=== PATIENT | male | born 1995 | race American Indian/Alaskan Native ===

== ENCOUNTER 2021-05-24 08:37 | Emergency (ER) | payer OTHER ==
[2021-05-24 08:49] VITALS: BP 129/75
--- NOTE | 2021-05-24 10:49 | Emergency Department Report ---
ED Eye Problem HPI - General Chief complaint: Eye Problems Stated complaint: BOTH WATERING,HURT Time Seen by Provider: 05/24/21 10:42 Source: patient Mode of arrival: Ambulatory Limitations: No Limitations - History of Present Illness Initial comments: Patient is a 25-year-old male presents emergency room complaints of bilateral eye irritation that began 2 days ago. He has associated frequent watering and mucus drainage. He denies anything getting into the eyes. He denies any contact lens use. he denies any vision changes changes. he denies anyone else with similar symptoms. Patient denies any past medical history. Patient denies any allergies to medicines - Related Data Previous Rx's Medication Instructions Recorded Last Taken Type Polymyxin B Sulf/Trimethoprim 1 drop OP Q3HR 7 Days #1 bottle 05/24/21 Unknown Rx [Polytrim Eye Drops 65714gbcif/0.1%] Allergies Allergy/AdvReac Type Severity Reaction Status Date / Time No Known Allergies Allergy Unverified 05/24/21 08:46 ED Review of Systems ROS: Stated complaint: BOTH WATERING,HURT Other details as noted in HPI Comment: All other systems reviewed and negative ED Past Medical Hx - Past Medical History Previous Medical History?: No - Surgical History Past Surgical History?: No - Social History Smoking Status: Never Smoker Substance Use Type: None - Medications Home Medications: Home Medications Medication Instructions Recorded Confirmed Last Taken Type Polymyxin B Sulf/Trimethoprim 1 drop OP Q3HR 7 Days #1 bottle 05/24/21 Unknown Rx [Polytrim Eye Drops 73217jlxup/0.1%] ED Physical Exam - General Limitations: No Limitations General appearance: alert, in no apparent distress - Head Head exam: Present: atraumatic, normocephalic - Eye Eye exam: Present: PERRL, EOMI, conjunctival injection (bilaterally). Absent: periorbital swelling, periorbital tenderness Pupils: Present: normal accommodation - ENT ENT exam: Present: mucous membranes moist - Respiratory Respiratory exam: Absent: respiratory distress, accessory muscle use - Neurological Exam Neurological exam: Present: alert, oriented X3 - Psychiatric Psychiatric exam: Present: normal affect, normal mood - Skin Skin exam: Present: warm, dry, intact ED Course Vital Signs 05/24/21 08:48 Temperature 98.4 F Pulse Rate 64 Respiratory 16 Rate Blood Pressure 129/75 O2 Sat by Pulse 100 Oximetry ED Medical Decision Making - Medical Decision Making Patient is a 25-year-old male presents emergency room complaints of bilateral eye irritation that began 2 days ago. He has associated frequent watering and mucus drainage. He denies anything getting into the eyes. He denies any contact lens use. he denies any vision changes changes. he denies anyone else with similar symptoms. Patient denies any past medical history. Patient denies any allergies to medicines. Vitals are normal. On exam: Bilateral conjunctival injection, no periorbital edema, erythema, tenderness palpation, EOMI, PERRLA. Patient given prescription for medication. Advised patient Please use medication as prescribed. Please wash your hands frequently. Avoid rubbing the eyes. Follow-up with city recorder if symptoms are not improving. Return to emergency room for any new or worsening symptoms. Critical care attestation.: If time is entered above; I have spent that time in minutes in the direct care of this critically ill patient, excluding procedure time. ED Disposition Clinical Impression: Conjunctivitis Qualifiers: Conjunctivitis type: acute Acute conjunctivitis type: unspecified Laterality: bilateral Qualified Code(s): H10.33 - Unspecified acute conjunctivitis, bilateral Disposition: DC- TO HOME OR SELFCARE Is pt being admited?: No Does the pt Need Aspirin: No Condition: Stable Instructions: Viral Conjunctivitis, Adult, Bacterial Conjunctivitis, Adult Additional Instructions: Please use medication as prescribed. Please wash your hands frequently. Avoid rubbing the eyes. Follow-up with city recorder if symptoms are not improving. Return to emergency room for any new or worsening symptoms. Prescriptions: Polymyxin B Sulf/Trimethoprim [Polytrim Eye Drops 20032pqngj/0.1%] 1 drop OP Q3HR 7 Days #1 bottle Referrals: LIAM KOWALSKI MD [Staff Physician] - 3-[address] [facility] [Provider Group] - 3-5 Days Time of Disposition: 10:47 Print Language: LITHUANIAN
== END 2021-05-24 11:28 | disposition home or self-care (01) ==
LOC: ED 08:37
DX: H10.9 Unspecified conjunctivitis (principal)
CPT/HCPCS: 99282

== ENCOUNTER 2021-10-02 23:16 | Emergency (ER) | payer OTHER ==
[2021-10-02] MEDS ORDERED: fentaNYL 100 MCG/2 ML INJ IV ONE (23:37)
[2021-10-02] MEDS ORDERED: SODIUM CHLORIDE 0.9% 1000 ML 1,000 ML IV ONE (23:37)
[2021-10-02] MEDS ORDERED: ONDANSETRON 4 MG/2 ML INJ IV ONE (23:37)
[2021-10-02] MEDS ORDERED: KETOROLAC 30 MG/1 ML INJ IV ONE (23:38)
--- NOTE | 2021-10-02 23:46 | Emergency Department Report ---
HPI - General Chief Complaint: Abdominal Pain Time Seen by Provider: 10/02/21 23:33 - HPI HPI: Room 17 Patient is a 26-year-old male presenting with a chief complaint of left flank pain. The patient states for the past 2 to 3 days she has had intermittent left flank pain. The patient states BC powder helped his pain but it continues to return. Patient also describes pain when he urinates at times. Patient denies history of fever nausea or vomiting. Patient denies previous episodes of the same. Patient gives his pain a score of 10/10 ED Past Medical Hx - Past Medical History Previous Medical History?: No - Surgical History Past Surgical History?: No - Family History Family history: no significant - Social History Smoking Status: Never Smoker Substance Use Type: None (Denies illicit drug use), Alcohol (Occasional) - Medications Home Medications: Home Medications Medication Instructions Recorded Confirmed Last Taken Type Polymyxin B Sulf/Trimethoprim 1 drop OP Q3HR 7 Days #1 bottle 05/24/21 Unknown Rx [Polytrim Eye Drops 10996cyyzy/0.1%] Ondansetron [Zofran ODT TAB] 8 mg PO Q8HR #20 tab.rapdis 10/03/21 Unknown Rx Tamsulosin [Flomax] 0.4 mg PO QDAY #5 cap 10/03/21 Unknown Rx oxyCODONE /ACETAMINOPHEN [Percocet 1 - 2 tab PO Q6HR PRN #20 tablet 10/03/21 Unknown Rx 5/325] ED Review of Systems ROS: Stated complaint: FLANK PAIN Other details as noted in HPI Constitutional: denies: fever Eyes: denies: eye pain ENT: denies: throat pain Respiratory: no symptoms reported Cardiovascular: denies: chest pain Endocrine: no symptoms reported Gastrointestinal: abdominal pain. denies: nausea, vomiting Genitourinary: dysuria. denies: hematuria Musculoskeletal: back pain Neurological: denies: headache Physical Exam - Physical Exam Vital Signs: Vital Signs 10/02/21 23:30 Temperature 98.5 F Pulse Rate 92 H Respiratory 18 Rate Blood Pressure 148/86 [Left] O2 Sat by Pulse 99 Oximetry Physical Exam: GENERAL: The patient is well-developed well-nourished male lying on stretcher appearing to be in moderate discomfort. [] HEENT: Normocephalic. Atraumatic. Extraocular motions are intact. Patient has moist mucous membranes. NECK: Supple. Trachea midline CHEST/LUNGS: Clear to auscultation. There is no respiratory distress noted. HEART/CARDIOVASCULAR: Regular. There is no tachycardia. There is no gallop rub or murmur. ABDOMEN: Abdomen is soft, with discomfort to palpation in the left lower quadrant left upper quadrant and midepigastric region. There is no rebound or guarding. Patient has normal bowel sounds. There is no abdominal distention. SKIN: There is no rash. There is no edema. There is no diaphoresis. NEURO: The patient is awake, alert, and oriented. The patient is cooperative. The patient has no focal neurologic deficits. The patient has normal speech. GCS 15 MUSCULOSKELETAL: There is left CVA tenderness. There is no evidence of acute injury. ED Course Vital Signs 10/02/21 23:30 Temperature 98.5 F Pulse Rate 92 H Respiratory 18 Rate Blood Pressure 148/86 [Left] O2 Sat by Pulse 99 Oximetry - Reevaluation(s) Reevaluation #1: 10/03/21 02:18 Patient comfortable now and pain controlled. CT findings and labs discussed with him. Strong warnings given to return should he develop a fever. The importance of follow-up with a urologist was stressed. Patient verbalized understanding ED Medical Decision Making - Lab Data Result diagrams: 10/02/21 23:56 10/02/21 23:56 Laboratory Tests 10/02/21 10/02/21 10/03/21 23:56 23:56 01:12 WBC 7.5 RBC 5.06 H Hgb 14.9 Hct 45.7 H MCV 90 MCH 29 MCHC 33 RDW 12.8 L Plt Count 161 Lymph % (Auto) 18.4 [place] % (Auto) 6.7 Eos % (Auto) 3.2 Baso % (Auto) 0.3 Lymph # (Auto) 1.4 [place] # (Auto) 0.5 Eos # (Auto) 0.2 Baso # (Auto) 0.0 Seg Neutrophils % 71.4 H Seg Neutrophils # 5.3 Sodium 142 Potassium 3.7 Chloride 106.1 Carbon Dioxide 24 Anion Gap 16 BUN 15 Creatinine 1.1 Estimated GFR > 60 BUN/Creatinine Ratio 14 Glucose 110 H Calcium 9.6 Total Bilirubin 0.80 AST 21 ALT 30 Alkaline Phosphatase 62 Total Protein 6.2 L Albumin 4.2 Albumin/Globulin Ratio 2.1 Lipase 18 Urine Color Yellow Urine Turbidity Slightly-cloudy Urine pH 7.0 Ur Specific [place] 1.015 Urine Protein <15 mg/dl Urine Glucose (UA) Neg Urine Ketones Neg Urine Blood Mod Urine Nitrite Neg Urine Bilirubin Neg Urine Urobilinogen < 2.0 Ur Leukocyte Esterase Neg Urine WBC (Auto) 3.0 Urine RBC (Auto) 30.0 Urine Mucus Few Urine Yeast (Budding) Few - Radiology Data Radiology results: report reviewed (CT abdomen pelvis), image reviewed (CT abdomen pelvis) [facility] [address] [id number] Cat Scan Report Signed Patient: BRITNI SCHWAB MR#: [id number] : 1995 Acct:[id number] Age/Sex: 26 / M ADM Date: 10/02/21 Loc: ED Attending Dr: Ordering Physician: KITA MCDOWELL MD Date of Service: 10/02/21 Procedure(s): CT abdomen pelvis wo con Accession Number(s): [id number] cc: KITA MCDOWELL MD CT ABDOMEN AND PELVIS WITHOUT CONTRAST INDICATION / CLINICAL INFORMATION: Left flank pain. TECHNIQUE: Axial CT images were obtained through the abdomen and pelvis without IV contrast. All CT scans at this location are performed using CT dose reduction for ALARA by means of automated exposure control. COMPARISON: None available. FINDINGS: LOWER CHEST: Right middle lobe volume loss. LIVER: No significant abnormality GALLBLADDER/BILIARY TREE: No significant abnormality PANCREAS: No significant abnormality SPLEEN: No significant abnormality ADRENALS: No significant abnormality KIDNEYS / URETER: 8 mm left UVJ stone with moderate left hydronephrosis. There is asymmetric stranding of the left kidney and ureter. Right kidney and ureter are unremarkable. URINARY BLADDER: No significant abnormality REPRODUCTIVE ORGANS: No significant abnormality STOMACH / BOWEL: Moderate colonic stool burden. No evidence of colitis. Small bowel is normal in caliber. The appendix is normal in caliber. LYMPH NODES: No significant adenopathy. VASCULATURE: No significant abnormality. OTHER: No free air, free fluid, or focal fluid collection is identified. SKELETAL SYSTEM: No acute osseous findings. IMPRESSION: 8 mm obstructive left UVJ stone with moderate left hydronephrosis. Signer Name: Damian Brock MD Signed: 10/03/2021 1:12 AM Workstation Name: [id number] Transcribed By: JS Dictated By: DAMIAN BROCK MD Electronically Authenticated By: DAMIAN BROCK MD Signed Date/Time: 10/03/21111 DD/ 9 TD/TT: Print Cancel - Differential Diagnosis Renal colic, pyelonephritis, Critical care attestation.: If time is entered above; I have spent that time in minutes in the direct care of this critically ill patient, excluding procedure time. ED Disposition Clinical Impression: Renal colic on left side Disposition: HOME / SELF CARE / HOMELESS Is pt being admited?: No Does the pt Need Aspirin: No Condition: Stable Instructions: Kidney Stones, [id number], Renal Colic Additional Instructions: Return to the emergency department should you develop worsening symptoms, inability to tolerate food or liquids, high fever or any other concerns Prescriptions: Tamsulosin [Flomax] 0.4 mg PO QDAY #5 cap oxyCODONE /ACETAMINOPHEN [Percocet 5/325] 1 - 2 tab PO Q6HR PRN #20 tablet PRN Reason: Pain Ondansetron [Zofran ODT TAB] 8 mg PO Q8HR #20 tab.rapdis Referrals: EVGENY SHAIKH MD [Staff Physician] - 3-5 Days (Dr. Shaikh is a urologist. Please follow-up with him for further evaluation) Time of Disposition: 02:23
[2021-10-03 00:23] LABS: Basophils % (Auto) 0.3 % (0.0-1.8); Eosinophils # (Auto) 0.2 K/mm3 (0.0-0.4); Eosinophils % (Auto) 3.2 % (0.0-4.3); Hematocrit 45.7 % (35.5-45.6); Hemoglobin 14.9 gm/dl (11.8-15.2); Lymphocytes # (Auto) 1.4 K/mm3 (1.2-5.4); Lymphocytes % (Auto) 18.4 % (13.4-35.0); Mean Corpuscular HGB Conc 33 % (32-34); Mean Corpuscular Volume 90 fl (84-94); Monocytes # (Auto) 0.5 K/mm3 (0.0-0.8); Monocytes % (Auto) 6.7 % (0.0-7.3); Platelet Count 161 K/mm3 (140-440); Red Blood Count 5.06 M/mm3 (3.65-5.03); Red Cell Distribution Width 12.8 % (13.2-15.2)
[2021-10-03 00:40] LABS: Alanine Aminotransferase 30 units/L (7-56); Albumin 4.2 g/dL (3.9-5); BUN/Creatinine Ratio 14; Blood Urea Nitrogen 15 mg/dL (9-20)
[2021-10-03] MEDS ORDERED: fentaNYL 100 MCG/2 ML INJ IV ONE (00:40)
[2021-10-03 00:44] LABS: Calcium 9.6 mg/dL (8.4-10.2); Hemolysis Index 6
--- NOTE | 2021-10-03 01:16 | Cat Scan Report ---
CT ABDOMEN AND PELVIS WITHOUT CONTRAST INDICATION / CLINICAL INFORMATION: Left flank pain. TECHNIQUE: Axial CT images were obtained through the abdomen and pelvis without IV contrast. All CT scans at this location are performed using CT dose reduction for ALARA by means of automated exposure control. COMPARISON: None available. FINDINGS: LOWER CHEST: Right middle lobe volume loss. LIVER: No significant abnormality GALLBLADDER/BILIARY TREE: No significant abnormality PANCREAS: No significant abnormality SPLEEN: No significant abnormality ADRENALS: No significant abnormality KIDNEYS / URETER: 8 mm left UVJ stone with moderate left hydronephrosis. There is asymmetric strandin g of the left kidney and ureter. Right kidney and ureter are unremarkable. URINARY BLADDER: No significant abnormality REPRODUCTIVE ORGANS: No significant abnormality STOMACH / BOWEL: Moderate colonic stool burden. No evidence of colitis. Small bowel is normal in whit denisha. The appendix is normal in caliber. LYMPH NODES: No significant adenopathy. VASCULATURE: No significant abnormality. OTHER: No free air, free fluid, or focal fluid collection is identified. SKELETAL SYSTEM: No acute osseous findings. IMPRESSION: 8 mm obstructive left UVJ stone with moderate left hydronephrosis. Signer Name: Austin Brock MD Signed: 10/03/2021 1:12 AM Workstation Name: [id number]
[2021-10-03] MEDS ORDERED: HYDROmorphone 1 MG/1 ML INJ IV ONE (01:22)
[2021-10-03 01:59] LABS: Bilirubin,Urine NEG (Negative); Blood,Urine MOD (Negative); Color,Urine Yellow (Yellow); Mucus,Urine FEW /HPF; Protein,Urine <15 mg/dL mg/dL (Negative); Urobilinogen,Urine < 2.0 mg/dL (<2.0)
[2021-10-03 03:28] VITALS: BP 146/81
== END 2021-10-03 03:30 | disposition home or self-care (01) ==
LOC: ED 23:16
DX: N23 Unspecified renal colic (principal)
CPT/HCPCS: 36415; 74176; 80053; 81001; 83690; 85025; 96361; 96374; 96375; 99284; J1170; J1885; J2405; J3010; J7030; Q0162